=== PATIENT | female | born 1960 | race Caucasian/White ===

== ENCOUNTER 2016-12-15 12:14 | Emergency (ER) | payer OTHER ==
--- NOTE | 2016-12-15 12:19 | PDOC ---
History of Present Illness - General Chief Complaint: Pain Stated Complaint: ABD PAIN Time Seen by Provider: 12/15/16 12:17 History Source: Patient Exam Limitations: No Limitations - History of Present Illness Travel History: No Initial Comments: 12/15/16 12:54 56y F hx of htn presents with abdominal pain. Pt noticed lower abd pain on thursday, and it has gradualy worsened untli today when seh went to her PMD wh referred her to the ED. The pt denies any fever/chills, n/v, diarrhea, blood per rectum, dysuria, hematuria. Pt did note that the pain seem to start radiating to the RLQ and ot the R flank this morning. She also notes that it was painful for her to bend over to tie her shoes today. pt also notes she has a history of kidney stones but this feels differently. 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 Past History - Past Medical History Allergies/Adverse Reactions: Allergies Allergy/AdvReac Type Severity Reaction Status Date / Time Penicillins Allergy Verified 12/15/16 12:16 Home Medications: Ambulatory Orders Alprazolam [Xanax] 0.5 mg PO TID 12/15/16 Hydrochlorothiazide [Hctz -] 25 mg PO DAILY 12/15/16 Paroxetine HCl 20 mg PO DAILY 12/15/16 Review of Systems - Review of Systems Able to Perform ROS?: Yes Comments:: 12/15/16 12:57 Constitutional - no reported Fever, Chills, HEENT: no reported vision changes, sore throat Respiratory: no reported cough, sob, hemoptysis Cardiac: no reported chest pain, palpitations, light headedness, leg swelling Abd/GI: +abd pain, no reported nausea, vomiting, blood per rectum, melena, diarrhea : no reported dysuria, frequency, discharge Musculskelatal - no reported back pain, joint swelling skin - no reported bruising, erythema, rash neurological: no reported headache, numbness, focal weakness, tingling, ataxia, hematologic: no reported anemia, easy bruising, easy bleeding *Physical Exam - Physical Exam Comments: 12/15/16 12:57 GENERAL: The patient is awake, alert, and fully oriented, Nontoxic - in no acute distress. HEAD: Normocephalic, atraumatic. EYES: extraocular movements intact, sclera anicteric, conjunctiva clear. ENT: Normal voice, Moist mucous membranes. NECK: Normal range of motion, supple LUNGS: Breath sounds equal, clear to auscultation bilaterally. No wheezes, no rhonchi, no rales. HEART: Regular rate and rhythm, normal S1 and S2 without murmur, rub or gallop. ABDOMEN: Soft, nontender, normoactive bowel sounds. No guarding, no rebound. No CVA tenderness No masses or hernias appreciated. EXTREMITIES: Normal range of motion, no edema. No clubbing or cyanosis. No cords, erythema, or tenderness. NEUROLOGICAL: No facial assymetry, Normal speech, PSYCH: Normal mood, normal affect. SKIN: Warm, Dry, normal turgor, ED Treatment Course - LABORATORY CBC & Chemistry Diagram: 12/15/16 12:33 12/15/16 12:33 Medical Decision Making - Medical Decision Making 12/15/16 12:58 differential includes appendicits, kidney stones, msk/strain will ck ua, labs pt s/p toradol from PMDs office, currently not in any discomfort 12/15/16 15:15 pt feels improved no pain currenlty labs reviewed unremarkble UA w/ + hematuria ct neative for acute processes, +pulm nodule at left base - will have pt fu with her pmd to follow suspect her sypmtoms are musuclar as pain sems worse with hip felxion will recommend supportive care motrin/tylenol rest I discussed the physical exam findings, ancillary test results and final diagnoses with the patient. I answered all of the patient's questions. The patient was satisfied with the care received and felt comfortable with the discharge plan and treatment plan. The patient will call their primary care physician within 24 hours to arrange follow-up and will return to the Emergency Department with any new, persistent or worsening symptoms. *DC/Admit/Observation/Transfer Diagnosis at time of Disposition: Pulmonary nodule, left, Right hip pain Hematuria Qualifiers: Hematuria type: unspecified type Qualified Code(s): R31.9 - Hematuria, unspecified - Discharge Dispostion Disposition: HOME Condition at time of disposition: Improved Admit: No - Referrals Referrals: Tamara Devlin MD [Primary Care Provider] - - Patient Instructions Printed Discharge Instructions: DI for Muscle Strain Additional Instructions: I suspect your sypmtoms may be due to a hip strain. For the next few days, rest. Take tylenol or motrin for pain. Use a heating pad as comfort. There was some blood noted in your urine. please follow up with your primary crae doctor to have this repeated. If you have any vomiting, fever/chills, inability to tolerate oral intake or other concerns return to the ED for evaluation.
[2016-12-15 12:20] VITALS: BP 159/80; PULSE 73; TEMP 99; BMI 23.9
[2016-12-15 12:27] LABS: PH,URINE 6.5 (4.5-8); URINE APPEARANCE Clear; URINE BILIRUBIN Negative (NEGATIVE); URINE GLUCOSE (UA) Negative (NEGATIVE); URINE KETONE Negative (NEGATIVE); URINE LEUK ESTERASE Negative (NEGATIVE); URINE NITRITE Negative (NEGATIVE); URINE PROTEIN Negative (NEGATIVE); URINE UROBILINOGEN 0.2 (0.2-1.0)
[2016-12-15 12:28] LABS: URINE COLOR YELLOW
[2016-12-15 12:57] LABS: ALBUMIN 4.2 g/dl (3.5-5.0); ALK PHOS 64 U/L (32-92); ANION GAP 5 (8-16); BILIRUBIN,TOTAL 0.4 mg/dl (0.2-1.0); CALCIUM 9.4 mg/dl (8.4-10.2); CO2 30 mmol/L (22-28); CREATININE 0.6 mg/dl (0.6-1.3); GLUCOSE,RANDOM 106 mg/dl (74-106); SGOT/AST 25 U/L (10-42); SGPT/ALT 33 U/L (10-40); TOT PROT 6.5 g/dl (6.4-8.3)
[2016-12-15 13:01] LABS: BASOPHIL 3.5 % (0-2.0); EOSINOPHIL 3.6 % (0-4.5); MCH 32.7 pg (25.7-33.7); MCHC 34.4 g/dl (32.0-36.0); MEAN CELL VOLUME 95.1 fl (80-96); MEAN PLT VOLUME 9.4 fl (7.5-11.1); NEUTROPHILS 47.1 % (42.8-82.8); PLATELET COUNT 240 K/MM3 (134-434); RDW 12.1 % (11.6-15.6); WHITE BLOOD COUNT 7.6 K/mm3 (4.0-10.8)
[2016-12-15 14:57] LABS: URINE BLOOD 2+ (NEGATIVE)
== END 2016-12-15 15:37 | disposition home or self-care (01) ==
LOC: FER 12:14
DX: R31.9 Hematuria, unspecified (principal); M25.551 Pain in right hip; R91.1 Solitary pulmonary nodule
CPT/HCPCS: 36415; 74176; 80053; 81003; 85025; 99284-25